=== PATIENT | female | born 1970 | race Two or more races ===

== ENCOUNTER 2022-06-22 13:54 | Inpatient (IN) | payer MEDICARE, MEDICAID ==
[~2022-06-22] VITALS: Ht 162.6 cm; Wt 62.1 kg
[2022-06-22 15:12] LABS: Albumin 2.4 g/dL (3.4-5.0); Calcium 7.8 mg/dL (8.5-10.1); Magnesium 1.9 mg/dL (1.6-2.6)
[2022-06-22 15:15] LABS: BUN/Creatinine Ratio 10.2; Bilirubin, Total 0.4 mg/dL (0.2-1.0); Total Protein 4.4 g/dL (6.4-8.2)
[2022-06-22 15:17] LABS: Basophils # (auto) 0 10 ^3/uL (0-0.2); Eosinophils # (auto) 0 10 ^3/uL (0-0.8); Hemoglobin 10.7 g/dL (12.2-16.2); Lymphocytes # (auto) 1.2 10 ^3/uL (0.4-5.4); Lymphocytes % (auto) 29.4 % (10.0-50.0); Mean Corpuscular Volume 77.7 fL (80.0-100.0); Monocytes # (auto) 0.4 10 ^3/uL (0-1.3); Nucleated Red Blood Cells % 0.1 %
[2022-06-22 15:19] LABS: Basophils % (auto) 0.6 % (0.0-2.0); Eosinophils % (auto) 0.5 % (0.0-7.0); Hematocrit 31.2 % (36.0-46.0); Mean Corpuscular Hemoglobin 26.6 pg (28.0-32.0); Mean Corpuscular Hgb Conc. 34.2 g/dL (32.0-36.0); Neutrophils # (auto) 2.4 10 ^3/uL (1.6-8.6); Neutrophils % (auto) 59.5 % (37.0-80.0); Red Blood Cells 4.02 10^6/uL (4.0-5.20); Red Cell Distribution Width 13.8 % (11.8-14.3)
[2022-06-22 15:32] LABS: Potassium 2.4 mmol/L (3.5-5.1)
[2022-06-22] MEDS ORDERED: POTASSIUM EFFERVESENT TAB 25 MEQ PO ONE (16:00)
[2022-06-22] MEDS ORDERED: POTASSIUM CHL 20MEQ/100ML 100 ML IV ONE (16:00)
[2022-06-22] MEDS ORDERED: MORPHINE SULFATE INJ 2 MG/ml SYRG IV PRN (19:30)
[2022-06-22] MEDS ORDERED: MAGNESIUM SULFATE 1GM/100ML 100 ML IV ONE (19:30)
[2022-06-22] MEDS ORDERED: ONDANSETRON HCL 4 MG/2 ML VIAL IV PRN (19:30)
[2022-06-22] MEDS ORDERED: NITROGLYCERIN 0.4 MG SL TAB SL PRN (19:30)
[2022-06-22] MEDS ORDERED: ALBUMIN 5% 250 ML IV ONE (19:45)
[2022-06-22 21:15] LABS: Cholesterol 133 mg/dL (< 200); Triglycerides 102 mg/dL (< 150)
[2022-06-22 21:18] LABS: HDL Cholesterol 68 mg/dL (40-59); LDL Cholesterol 64 mg/dL (< 100)
[2022-06-22] MEDS: SODIUM CHLORIDE 0.9% 1,000 ML IV SCH (23:07)
[2022-06-23 02:33] LABS: BUN/Creatinine Ratio 10.3; Calcium 7.3 mg/dL (8.5-10.1)
[2022-06-23 02:34] LABS: Potassium 2.4 mmol/L (3.5-5.1)
[2022-06-23] MEDS: POTASSIUM CHL 20MEQ/100ML 100 ML IV SCH ×3 (03:08→08:11)
[2022-06-23] MEDS: SODIUM CHLORIDE 0.9% 1,000 ML IV SCH (03:45)
[2022-06-23 06:42] LABS: Basophils # (auto) 0 10 ^3/uL (0-0.2); Eosinophils # (auto) 0 10 ^3/uL (0-0.8); Eosinophils % (auto) 1.2 % (0.0-7.0); Hematocrit 26.4 % (36.0-46.0); Hemoglobin 9.1 g/dL (12.2-16.2); Lymphocytes # (auto) 0.8 10 ^3/uL (0.4-5.4); Lymphocytes % (auto) 35.6 % (10.0-50.0); Mean Corpuscular Hemoglobin 27.1 pg (28.0-32.0); Mean Corpuscular Hgb Conc. 34.5 g/dL (32.0-36.0); Mean Corpuscular Volume 78.6 fL (80.0-100.0); Monocytes # (auto) 0.3 10 ^3/uL (0-1.3); Monocytes % (auto) 12.3 % (0.0-12.0); Neutrophils # (auto) 1.2 10 ^3/uL (1.6-8.6); Neutrophils % (auto) 49.9 % (37.0-80.0); Nucleated Red Blood Cells % 0.1 %; Red Blood Cells 3.36 10^6/uL (4.0-5.20); White Blood Cell 2.4 10^3/uL (4.4-10.8)
[2022-06-23 06:56] LABS: Albumin 2.1 g/dL (3.4-5.0); BUN/Creatinine Ratio 12.3; Calcium 7.2 mg/dL (8.5-10.1)
[2022-06-23 07:01] LABS: Bilirubin, Total 0.3 mg/dL (0.2-1.0); Total Protein 3.7 g/dL (6.4-8.2)
[2022-06-23 07:13] LABS: Potassium 2.8 mmol/L (3.5-5.1)
[2022-06-23] MEDS: ENOXAPARIN SOD 40 MG/0.4 ML SYRINGE SC SCH (10:35)
[2022-06-23] MEDS ORDERED: levoFLOXacin 500MG 100 ML IV ONE (12:00)
[2022-06-23] MEDS ORDERED: SOD CHL 0.9%/ KCL 40MEQ 1,000 ML IV ONE (12:00)
[2022-06-23] MEDS ORDERED: POTASSIUM CHLORIDE 60 MEQ, LIDOCAINE 1% (LOCAL ANESTH.) 6 ML in SODIUM CHL 0.9% 500 ML IV ONE (12:00)
[2022-06-23] MEDS ORDERED: ACETAMINOPHEN 325 MG TAB PO PRN (13:00)
[2022-06-23 13:06] LABS: Calcium 7.5 mg/dL (8.5-10.1); Potassium 3.1 mmol/L (3.5-5.1)
[2022-06-23] MEDS: HYDROcodone-ACET 5/325MG TAB PO PRN ×2 (15:52→22:11)
[2022-06-23 16:42] VITALS: BP 113/49
[2022-06-23 18:48] LABS: BUN/Creatinine Ratio 7.1; Calcium 7.8 mg/dL (8.5-10.1); Potassium 3.4 mmol/L (3.5-5.1)
[2022-06-23 22:00] VITALS: BP 94/62
[2022-06-23] MEDS: PREGABALIN 25 MG CAP PO SCH (22:00)
[2022-06-24 05:00] VITALS: BP 109/64
[2022-06-24 05:53] LABS: BUN/Creatinine Ratio 7.8; Calcium 7.6 mg/dL (8.5-10.1); Potassium 3.8 mmol/L (3.5-5.1)
[2022-06-24] MEDS ORDERED: LEVOTHYROXINE SODIUM 50 MCG TAB PO SCH (07:00)
[2022-06-24] MEDS: HYDROcodone-ACET 5/325MG TAB PO PRN (09:14)
[2022-06-24] MEDS: ENOXAPARIN SOD 40 MG/0.4 ML SYRINGE SC SCH (09:14)
[2022-06-24] MEDS ORDERED: levoFLOXacin 500MG 100 ML IV SCH (10:00)
[2022-06-24] MEDS: PREGABALIN 25 MG CAP PO SCH (10:00)
[2022-06-24 11:37] VITALS: BP 100/64
[2022-06-24 13:00] VITALS: BP 103/42
== END 2022-06-24 15:30 | disposition home or self-care (01) | DRG 640 ==
LOC: EDBD 13:54 → ER 13:54 → TELE 19:25 → TELE-WESTW 06-23 14:52
PROVIDERS: ADMIT Registered Nurse; ATTEND Family Medicine
DX: E87.6 Hypokalemia (principal); E43 Unspecified severe protein-calorie malnutrition; N17.9 Acute kidney failure, unspecified; M79.7 Fibromyalgia; E87.1 Hypo-osmolality and hyponatremia; E86.0 Dehydration; D64.9 Anemia, unspecified; E03.9 Hypothyroidism, unspecified; J44.9 Chronic obstructive pulmonary disease, unspecified; E87.8 Other disorders of electrolyte and fluid balance, not elsewhere classified; Z20.822 Contact with and (suspected) exposure to COVID-19; N18.32 Chronic kidney disease, stage 3b; F32.A Depression, unspecified; F41.9 Anxiety disorder, unspecified; R74.01 Elevation of levels of liver transaminase levels; Z68.23 Body mass index [BMI] 23.0-23.9, adult; Z80.1 Family history of malignant neoplasm of trachea, bronchus and lung; Z88.5 Allergy status to narcotic agent; Z88.1 Allergy status to other antibiotic agents
CPT/HCPCS: 36415; 70450; 71045; 80048; 80053; 80061; 80320; 83735; 83880; 84439; 84443; 84484; 85025; 93005; 93306; 96365; 96366; G0378; J1956; J2001; J3480